=== PATIENT | male | born 1975 | race American Indian/Alaskan Native ===

== ENCOUNTER 2020-02-26 15:40 | Emergency (ER) | payer MEDICAID ==
[2020-02-26] MEDS ORDERED: Amoxicillin/Clavulanate K 875-125 MG Tab PO ONE (16:03)
[2020-02-26] MEDS ORDERED: Lidocaine 1% 30 ML SDV INJECT ONE (16:03)
[2020-02-26] MEDS ORDERED: Diphtheria,Pertussis(Acell),Tetanus Vaccine 0.5 ML SDV IM ONE (16:03)
--- NOTE | 2020-02-26 16:28 | CR ---
PROCEDURE INFORMATION: Exam: XR Left Hand Exam date and time: 02/26/2020 4:17 PM Age: 44 years old Clinical indication: Other: Pain/swelling; Additional info: Dog bite left hand TECHNIQUE: Imaging protocol: XR Left hand. Views: 3 or more views. COMPARISON: No relevant prior studies available. FINDINGS: Bones/joints: There is no evidence of acute fracture. There is no evidence of joint malalignment or dislocation. Soft tissues: There are no soft tissue masses or fluid collections. IMPRESSION: 1. No evidence of acute fracture. 2. No evidence of acute dislocation.
[2020-02-26] MEDS ORDERED: Bacitracin Oint 1 GM U/D Packet TOP ONE (16:44)
--- NOTE | 2020-02-26 16:49 | EDM.PDOC ---
Scribed by Kirti Silver 02/26/20 [id number] for Wolfgang Castaneda MD ED HPI GENERAL MEDICAL PROBLEM - General Chief Complaint: Skin Complaint Stated Complaint: DOG BITE LEFT HAND Time Seen by Provider: 02/26/20 15:59 Source of Information: Reports: Patient, RN, RN Notes Reviewed History Limitations: Reports: No Limitations - History of Present Illness INITIAL COMMENTS - FREE TEXT/NARRATIVE: Patient presents to ED by POV with c/o dog bite to left hand. He states he was bit by his neighbor's pit-bull dog in the left hand. Denies any other injury. Pt thinks his last Tetanus vaccine was >10yrs ago. States [employer] is investigating whether dog has up to date immunizations or not. Onset: Today Duration: Constant Location: Reports: Upper Extremity, Left Quality: Reports: Ache Severity: Severe Improves with: Reports: Immobilization Worsens with: Reports: Movement (and palpation) Associated Symptoms: Reports: No Other Symptoms Left Hand Pain Score (Numeric/FACES): 10 - Related Data Allergies Allergy/AdvReac Type Severity Reaction Status Date / Time No Known Allergies Allergy Verified 02/26/20 15:55 Home Meds: Home Meds lisinopriL [Lisinopril] 20 mg PO DAILY 02/26/20 [History] Past Medical History Cardiovascular History: Reports: Hypertension Social & Family History - Family History Family Medical History: Noncontributory - Living Situation & Occupation Living situation: Reports: with Family ED ROS GENERAL - Review of Systems Review Of Systems: Comprehensive ROS is negative, except as noted in HPI. ED EXAM, SKIN/RASH Exam: See Below Exam Limited By: No Limitations General Appearance: Alert, WD/WN, No Apparent Distress Head: Atraumatic, Normocephalic Neck: Normal Inspection, Full Range of Motion Respiratory/Chest: No Respiratory Distress, No Accessory Muscle Use Cardiovascular: Normal Peripheral Pulses, Regular Rate, Rhythm, No Edema Back Exam: Normal Inspection Extremities: Normal Capillary Refill, Other (Deep rough edged laceration to thenar eminence of the left hand, and a puncture wound to the left distal thumb.). No: Joint Swelling Neurological: Alert, Oriented, CN II-XII Intact, Normal Cognition, Normal Gait, No Motor/Sensory Deficits Psychiatric: Normal Affect, Normal Mood Skin: Warm, Dry ED SKIN PROCEDURES - Laceration/Wound Repair Left Dorsal Hand Appearance: Subcutaneous, Linear, Mildly Contaminated Distal NVT: Neuro & Vascular Intact, No Tendon Injury Anesthetic Type: Local Local Anesthesia - Lidocaine (Xylocaine): 1% Plain Local Anesthetic Volume: Other (10cc) Skin Prep: Chlorhexidine (Hibiciens), Saline, Sterile Drape Exploration/Debridement/Repair: Wound Explored, In a Bloodless Field, Explored to Base, Moderate Debridement, Minimally Undermined, No Foreign Material Found Closed with: Sutures Lac/Wound length In cm: 4 Suture Size: 3-0 # of Sutures: 7 Suture Type: Nylon, Interrupted, Simple Sterile Dressing Applied: None Tetanus Status Addressed: Yes Complications: No Course - Orders/Labs/Meds Orders: Active Orders 24 hr Category Date Time Status Vaccines to be Administered [RC] PER UNIT ROUTINE Care 02/26/20 16:03 Active Bacitracin [Bacitracin Oint 1 GM] Med 02/26/20 16:44 Once 1 dose TOP ONETIME ONE Medication Orders Bacitracin (Bacitracin Oint 1 Gm) 1 dose TOP ONETIME ONE Stop: 02/26/20 16:45 Meds: Medications Generic Name Dose Route Start Last Admin Trade Name Freq PRN Reason Stop Dose Admin Bacitracin 1 dose 02/26/20 16:44 Bacitracin Oint 1 Gm TOP 02/26/20 16:45 ONETIME ONE Discontinued Medications Generic Name Dose Route Start Last Admin Trade Name Freq PRN Reason Stop Dose Admin Amoxicillin/Clavulanate Potassium 1 tab 02/26/20 16:03 02/26/20 16:16 Augmentin 875 Mg/125 Mg PO 02/26/20 16:04 1 tab ONETIME ONE Administration Diphtheria/Tetanus/Acell Pertussis 0.5 ml 02/26/20 16:03 02/26/20 16:15 Adacel IM 02/26/20 16:04 0.5 ml .ONCE ONE Administration Lidocaine HCl 30 ml 02/26/20 16:03 02/26/20 16:15 Xylocaine-Mpf 1% INJECT 02/26/20 16:04 30 ml ONETIME ONE Administration - Radiology Interpretation Free Text/Narrative:: [facility] Final Radiology Report Call: [phone] assistance Online chat: [email or web address] Name: BOSTON, JANINE Age: 44Years M Date: 02/26/2020 SSN: -- : [id number] Study: CR HAND COMP MIN 3V LT Requesting Physician: WOLFGANG CASTANEDA Images: 3 Addl Studies: Provided Clinical History: Dog bite left hand Contrast: Contrast Medium: Contrast Amount: Contrast Method: CONFIDENTIALITY STATEMENT This report is intended only for use by the referring physician, and only in accordance with law. If you received this in error, call [phone]. Page 1 of 1 PROCEDURE INFORMATION: Exam: XR Left Hand Exam date and time: 02/26/2020 4:17 PM Age: 44 years old Clinical indication: Other: Pain/swelling; Additional info: Dog bite left hand TECHNIQUE: Imaging protocol: XR Left hand. Views: 3 or more views. COMPARISON: No relevant prior studies available. FINDINGS: Bones/joints: There is no evidence of acute fracture. There is no evidence of joint malalignment or dislocation. Soft tissues: There are no soft tissue masses or fluid collections. IMPRESSION: 1. No evidence of acute fracture. 2. No evidence of acute dislocation. Thank you for allowing us to participate in the care of your patient. Dictated and Authenticated by: Jason Catalan DO 02/26/2020 4:28 PM Central Time ([place] & [place]) Departure - Departure Time of Disposition: 17:00 Disposition: Home, Self-Care 01 Condition: Good Clinical Impression: Dog bite of left hand Qualifiers: Encounter type: initial encounter Qualified Code(s): S61.452A - Open bite of left hand, initial encounter; W54.0XXA - Bitten by dog, initial encounter - Discharge Information *PRESCRIPTION DRUG MONITORING PROGRAM REVIEWED*: Not Applicable *COPY OF PRESCRIPTION DRUG MONITORING REPORT IN PATIENT HIRAM: Not Applicable Instructions: Animal Bite, Adult, [id number], Sutured Wound Care, [id number] Forms: ED Department Discharge Additional Instructions: Rx: Augmentin 875mg Rx: Ibuprofen 800mg Rx: Bactroban Ointment 2% Follow up in clinic in 7 to 10 days for suture removal. Return to ER if any signs of infection develop. - My Orders Last 24 Hours: My Active Orders 02/26/20 16:03 Vaccines to be Administered [RC] PER UNIT ROUTINE 02/26/20 16:44 Bacitracin [Bacitracin Oint 1 GM] 1 dose TOP ONETIME ONE - Assessment/Plan Last 24 Hours: My Active Orders 02/26/20 16:03 Vaccines to be Administered [RC] PER UNIT ROUTINE 02/26/20 16:44 Bacitracin [Bacitracin Oint 1 GM] 1 dose TOP ONETIME ONE I have read and agree with the documentation that has been completed regarding this visit. By signing this record, I attest that the documentation was completed in my physical presence and is an accurate record of the encounter.
== END 2020-02-26 17:04 | disposition home or self-care (01) ==
LOC: DL.ED 15:40
DX: S61.452A Open bite of left hand, initial encounter (principal); S61.412A Laceration without foreign body of left hand, initial encounter; I10 Essential (primary) hypertension; Z23 Encounter for immunization; Z79.899 Other long term (current) drug therapy; W54.0XXA Bitten by dog, initial encounter
CPT/HCPCS: 12002; 73130; 90471; 90715; 99283; A9270; J2001